=== PATIENT | male | born 1970 | race Caucasian/White ===

== ENCOUNTER 2020-02-09 13:26 | Outpatient (REF) | payer OTHER, SELFPAY ==
--- NOTE | 2020-02-09 13:46 | XR_ITS ---
EXAMINATION: XR FOOT, LEFT CLINICAL INFORMATION: Displaced fracture left fifth metatarsal bone. COMPARISON: Left ankle 01/05/2020 TECHNIQUE: AP, lateral, and oblique views of the left foot. FINDINGS: There is oblique healing fracture left fifth metatarsal. No additional fractures seen. The soft tissues are normal. XR/XR foot LT min 3V IMPRESSION: Slowly healing oblique fracture fifth metatarsal. Mild soft tissue swelling persists.
== END 2020-02-09 13:27 | disposition home or self-care (01) ==
LOC: HO.XRAY 13:26
PROVIDERS: Visit Provider Orthopaedic Surgery
DX: S92.355A Nondisplaced fracture of fifth metatarsal bone, left foot, initial encounter for closed fracture (principal); X58.XXXA Exposure to other specified factors, initial encounter; Y93.9 Activity, unspecified; Y92.9 Unspecified place or not applicable; Y99.8 Other external cause status
CPT/HCPCS: 73630; 99212

== ENCOUNTER 2020-05-03 08:52 | Outpatient (REF) | payer OTHER, SELFPAY ==
--- NOTE | 2020-05-03 13:08 | XR_ITS ---
EXAMINATION: XR FOOT, LEFT CLINICAL INFORMATION: Displaced fracture fifth metatarsal bone. Follow-up COMPARISON: Left foot 02/09/2020 TECHNIQUE: 3 views. FINDINGS: There is a slowly healing oblique fracture mid fifth metatarsal. There is mild callus formation seen along the fracture line. No additional fractures seen. The soft tissues of left foot has improved. XR/XR foot LT min 3V IMPRESSION: Slowly healing oblique fracture mid fifth metatarsal. The soft tissue swelling has improved.
== END 2020-05-03 08:53 | disposition home or self-care (01) ==
LOC: HO.HOSX 08:52
PROVIDERS: Visit Provider Orthopaedic Surgery
DX: S92.353A Displaced fracture of fifth metatarsal bone, unspecified foot, initial encounter for closed fracture (principal)
CPT/HCPCS: 73630; 99212

== ENCOUNTER 2020-06-14 07:56 | Outpatient (REF) | payer OTHER, SELFPAY ==
--- NOTE | ~2020-06-14 | XR_ITS ---
EXAMINATION: XR FOOT, LEFT CLINICAL INFORMATION: Fracture fifth metatarsal. Follow-up. COMPARISON: Radiographs left foot 05/03/2020, 02/09/2020. TECHNIQUE: AP, lateral, and oblique views of the left foot. FINDINGS: There is mild posttraumatic deformity of the right fifth metatarsal shaft. The fracture shows osseous union. There is no destructive process. There is no acute fracture or dislocation or destructive process. XR/XR foot LT min 3V IMPRESSION: Mild posttraumatic deformity right fifth metatarsal shaft. There appears to be osseous union of the prior fracture. No acute bony abnormality.
== END 2020-06-14 07:57 | disposition home or self-care (01) ==
LOC: HO.HOSX 07:56
PROVIDERS: Visit Provider Orthopaedic Surgery
DX: S92.353A Displaced fracture of fifth metatarsal bone, unspecified foot, initial encounter for closed fracture (principal); Y93.9 Activity, unspecified; Y92.9 Unspecified place or not applicable; Y99.8 Other external cause status; X58.XXXA Exposure to other specified factors, initial encounter; Z88.6 Allergy status to analgesic agent; Z88.5 Allergy status to narcotic agent
CPT/HCPCS: 73630; 99212